=== PATIENT | female | born 1945 | race Caucasian/White ===

== ENCOUNTER 2019-03-23 15:05 | Inpatient (IN) | payer OTHER ==
[~2019-03-23] VITALS: Ht 149.9 cm; Wt 42.6 kg
--- NOTE | 2019-03-23 16:03 | NUR ---
SE RECIBE PACIENTE QUE REFIERE DIFICULTAD RESPIRATORIA CON SOSPECHA DE PNEUMONIA.
[2019-03-23] MEDS ORDERED: MEGESTROL ACETA40 MG (16:06)
[2019-03-23] MEDS ORDERED: TRAM1TAB98 (16:07)
[2019-03-23] MEDS ORDERED: PROTONIX40 MG (16:07)
[2019-03-23] MEDS ORDERED: IBUPROFEN800 MG (16:07)
[2019-03-23] MEDS ORDERED: SERTRALINE HCL25 MG (16:08)
[2019-03-23] MEDS ORDERED: COUMADIN1 MG (16:08)
[2019-03-23] MEDS ORDERED: AMLODIPINE BESYL5 MG (16:08)
[2019-03-23] MEDS ORDERED: MILLIPRED5 MG (16:08)
[2019-03-23] MEDS ORDERED: RANITIDINE HCL300 M1 (16:08)
[2019-03-23] MEDS ORDERED: FOLIC ACID1 MG (16:08)
--- NOTE | 2019-03-23 16:15 | NUR ---
MISS. VO ORIENTA A PACIENTE SOBRE TRATAMIENTO. JACQUELINE MUESTRAS DE LABORATORIO ORDENADAS. CANALIZA CON AREA DE VENOPUNCION STEFAN DE EDEMA O ENROJECIMIENTO. ADMINISTRA MEDICAMENTOS ORDENADOS. SE MANTIENE EN CAMA EN OBSERVACION POR CAMBIOS.
--- NOTE | 2019-03-23 17:52 | NUR ---
SE AIDA S/V LOS CUALES SE PRESENTAN A DR. BARR QUEIN ORDENA COLOCAR VENTURY MASK AL 50%, SE COLOCA PTE EN MONITOR CARDIACO, CUFF DE PRESION Y OXIMETRO DE PULSO. SE EVALUA PTE POR CAMBIOS EN CONDICION.
--- NOTE | 2019-03-23 18:41 | NUR ---
SE NOTIFICAN S/V A DR. BARR QUIEN ORDENA NONREBREATHING AL 100%, SONDA URINARIA Y CULTIVO DE JERILYN Y ORINA.
== END 2019-04-13 11:31 | disposition expired | DRG 193 ==
LOC: ER 15:05 → MEDI 22:08 → ICU-2 22:08 → ICU 22:08 → MEDI 03-25 14:46
PROVIDERS: ADMIT Specialist
PROC: 02HV33Z Insertion of Infusion Device into Superior Vena Cava, Percutaneous Approach (ICD-10-PCS; principal; 2019-03-23)
PROC: 4A033R1 Measurement of Arterial Saturation, Peripheral, Percutaneous Approach (ICD-10-PCS; 2019-03-23)
PROC: 0T9B70Z Drainage of Bladder with Drainage Device, Via Natural or Artificial Opening (ICD-10-PCS; 2019-03-23)
PROC: 3E0F7GC Introduction of Other Therapeutic Substance into Respiratory Tract, Via Natural or Artificial Opening (ICD-10-PCS; 2019-03-24)
PROC: 4A12X4Z Monitoring of Cardiac Electrical Activity, External Approach (ICD-10-PCS; 2019-03-25)
PROC: 5A09457 Assistance with Respiratory Ventilation, 24-96 Consecutive Hours, Continuous Positive Airway Pressure (ICD-10-PCS; 2019-03-26)
PROC: 8E0ZXY6 Isolation (ICD-10-PCS; 2019-03-28)
PROC: BB4BZZZ Ultrasonography of Pleura (ICD-10-PCS; 2019-03-28)
PROC: BW24ZZZ Computerized Tomography (CT Scan) of Chest and Abdomen (ICD-10-PCS; 2019-04-03)
DX: J16.8 Pneumonia due to other specified infectious organisms (principal); J96.01 Acute respiratory failure with hypoxia; E43 Unspecified severe protein-calorie malnutrition; J90 Pleural effusion, not elsewhere classified; C34.32 Malignant neoplasm of lower lobe, left bronchus or lung; Z66 Do not resuscitate; D63.0 Anemia in neoplastic disease; Z16.12 Extended spectrum beta lactamase (ESBL) resistance; Z99.81 Dependence on supplemental oxygen; E86.0 Dehydration; E87.8 Other disorders of electrolyte and fluid balance, not elsewhere classified; D69.49 Other primary thrombocytopenia; R31.0 Gross hematuria